=== PATIENT | male | born 1960 | race Caucasian/White ===

== ENCOUNTER → 2025-02-04 | Outpatient (CLI) | payer MEDICARE, SELFPAY ==
--- NOTE | 2025-02-04 10:04 | VDLE_ITS ---
Reason For Study Reason For Study: Swelling BLE RIGHT LEFT CFV is compressible, spontaneous, competent and GSV is normal. demonstrates pulsatile venous flow. CFV is compressible, spontaneous, competent, and FV is compressible, spontaneous, competent and demonstrates pulsatile venous flow. demonstrates pulsatile venous flow. FV is compressible, spontaneous, competent and POP V is compressible, spontaneous, competent and demonstrates pulsatile venous flow. demonstrates pulsatile venous flow. POP V is compressible, spontaneous, competent and T/P Trunk is compressible. demonstrates pulsatile venous flow. PTV is compressible. T/P Trunk is compressible. RT PerV is compressible. PTV is compressible. SFJ is competent and measures 0.47cm x 0.45 cm. LT PerV is compressible. GSV proximal thigh measures 0.41cm x 0.46 cm. Lt SoleusV is DILATED and NON COMPRESSIBLE consistent GSV at knee measures 0.39cm x 0.44 cm. with acute DVT GSV above knee is competent. Pulsatile venous flow extends into the superficial GSV below knee is INCOMPETENT for greater than 0.5 system. seconds. SFJ is competent and measures 0.47cm x 0.45 cm. SSV mid calf is competent and measures 0.27cm x 0.27 GSV proximal thigh measures 0.47cm x 0.47 cm. cm. GSV at knee measures 0.33cm x 0.40 cm. ASV distal calf is INCOMPETENT for greater than 0.5 GSV is competent throughout. seconds and measures 0.28cm x 0.35 cm. SSV mid calf is competent and measures 0.41cm x 0.43 Pulsatile venous flow extends into the superficial cm. system. Procedure This is a venous duplex using B-mode, color flow and spectral Doppler. Exam performed in department. A preliminary report was called and/or faxed to [facility]. VL/Venous Duplex US - Thong Extrem Interpretation Summary Acute deep vein thrombosis is noted in the left soleus vein. Deep veins of the right lower extremity are patent and compressible segmentally . There is no evidence of right lower extremity deep vein thrombosis. The bilateral great saphenous veins appear walker nt and compressible segmentally. Positive for reflux in the right great saphensou vein below the knee, accessory saphenous vein in the calf Ordering Physician: Sobia Fish Referring Physician: Ashley Dean Performed By: Mery Spence, KAREN, RVT
== END | disposition home or self-care (01) ==
PROVIDERS: PCP Family Medicine; Referring Provider Physician Assistant; Visit Provider Physician Assistant
DX: I87.2 Venous insufficiency (chronic) (peripheral) (principal); M79.3 Panniculitis, unspecified; R60.9 Edema, unspecified
CPT/HCPCS: 93970